=== PATIENT | male | born 1955 | race Caucasian/White ===

== ENCOUNTER 2016-10-16 15:23 | Emergency (ER) | payer OTHER ==
[2016-10-16 15:27] VITALS: BP 131/92; PULSE 101; RESP 18; TEMP 98.2; O2SAT 97
[2016-10-16] MEDS ORDERED: TDAP ADULT 0.5 ML INJ (BOOSTRIX) IM ONE (15:39)
[2016-10-16] MEDS ORDERED: CEPHALEXIN 500 MG CAP PO ONE (15:39)
--- NOTE | 2016-10-16 15:40 | EDPHY ---
H & P Time Seen by Provider: 10/16/16 15:32 HPI/ROS: CHIEF COMPLAINT: Left 2nd and 3rd digit injury from table saw HISTORY OF PRESENT ILLNESS: 61-year-old [id number] male with out-of- date tetanus sustained accidental laceration to his distal left 2nd and 3rd digits when he impacted his table saw blade. Occurred shortly prior to arrival. No flexor extensor deficits. PRIMARY CARE PROVIDER: Collin REVIEW OF SYSTEMS: A ten point review of systems was performed and is negative with the exception of the items mentioned in the HPI PHYSICAL EXAM (Prior to examination, patient consented to physical exam, hands were washed and my usual and customary physical exam procedures followed) 1) GENERAL: Well-developed, well-nourished, alert and oriented. Appears to be in no acute distress. 2) HEAD: Normocephalic 3) HEENT: sclera anicteric 4) LUNGS: Breathing comfortably. 5) SKIN: Left middle digit distal phalanx macerated, avulsed tissue with no visible osseous fragments. Left 2nd digit with superficial skin avulsion no osseous fragments visualized. 6) MUSCULOSKELETAL: flexor and extensor function at the MCP PIP D IP is intact with no deficits of the 2nd and 3rd digits 7) NEUROLOGIC: Full sensation distally Smoking Status: Never smoked Constitutional: Initial Vital Signs Temperature (C) 36.8 C 10/16/16 15:23 Heart Rate 101 H 10/16/16 15:23 Respiratory Rate 18 10/16/16 15:23 Blood Pressure 131/92 H 10/16/16 15:23 O2 Sat (%) 97 10/16/16 15:23 O2 Delivery Mode Room Air Allergies/Adverse Reactions: No Known Allergies Allergy (Verified 10/16/16 15:23) Home Medications: Medication Instructions Recorded Venlafaxine HCl [Effexor] 0 mg PO 12/08/10 Cephalexin [Keflex] 500 mg PO QID 7 Days 10/16/16 Hydrocodone/APAP 5/325 [[place] 1 tab PO Q6 PRN #15 tab 10/16/16 5/325 (RX)] MDM/Departure - MDM Imaging Results: Imaging Impressions Hand X-Ray 10/16/16 15:28 Impression: Distal phalanx injuries of the second and third digits. Images reviewed myself Procedures: Procedure: Laceration repair. I explained the indications, risks and benefits for both laceration repair and anesthetic administration. Verbal consent was obtained from the patient . The laceration on the 2nd and 3rd digits were anesthetized using 0.5% bupivicaine without epinephrine digital nerve block. After anesthetic administered the patient was observed for a period of time and had no apparent adverse effects. The wound was cleaned, prepped, draped in normal sterile fashion and explored to its base. No foreign body seen, no foreign bodies palpated. the macerated tissue on the 3rd digit was reapproximated with 5 simple interrupted 5-O Prolene sutures sufficiently to cover any underlying structures The wound repair was complex. The procedure was performed by myself. Patient has been informed that scarring will occur, although efforts have been made to minimize this. Procedure: Splint Aluminum cage splints weres applied by ER operating room surgical technician. After application of the splint I returned and re-examined the patient. The splint was adequately immobilizing the joint and distal to the splint the patient's circulation and sensation were intact. Patient shows no signs of compartment syndrome. Was given orthopedic precautions. ED Course/Re-evaluation: 3:40 p.m.: Patient also seen and examined by Dr. Patricia in the ER 4:29 p.m.: Re-evaluation. Wound has been closed to cover any underlying osseous structures. There is sufficient coverage to cover these. He will plan on following up with [facility]. Started on Keflex. Usual customary wound precautions provided to the patient. He has been informed that he is at risk of osteomyelitis. The importance of follow-up was stressed on numerous instances. He feels comfortable being discharged. - Depart Disposition: Home, Routine, Self-Care Clinical Impression: Laceration of finger Qualifiers: Encounter type: initial encounter Finger: middle finger Damage to nail status: with damage Foreign body presence: without foreign body Laterality: left Qualified Code(s): S61.313A - Laceration without foreign body of left middle finger with damage to nail, initial encounter Condition: Good Instructions: Laceration (ED) Additional Instructions: Recommend you follow up with your [place] physician in 1 day. You may need to follow up with a [place] hand/orthopedic surgeon.Return to the ER if you develop redness, swelling, discharge, warmth to the wound, red streaks going up your arm , or any other symptoms that concern you.take your antibiotics as directed. Prescriptions: Cephalexin [Keflex] 500 mg PO QID 7 Days Hydrocodone/APAP 5/325 [[place] 5/325 (RX)] 1 tab PO Q6 PRN #15 tab PRN Reason: Pain, Severe Referrals: KENYA MCKENZIE [Other] - 1 day without fail
== END 2016-10-16 16:56 | disposition home or self-care (01) ==
PROC: 0HQGXZZ Repair Left Hand Skin, External Approach (ICD-10-PCS; principal; 2016-10-16)
DX: S61.313A Laceration without foreign body of left middle finger with damage to nail, initial encounter (principal); S61.211A Laceration without foreign body of left index finger without damage to nail, initial encounter; Z23 Encounter for immunization; W31.2XXA Contact with powered woodworking and forming machines, initial encounter
CPT/HCPCS: L3925